=== PATIENT | female | born 1965 | race Caucasian/White ===

== ENCOUNTER 2017-08-26 14:54 | Emergency (ER) | payer OTHER ==
[2017-08-26 15:01] VITALS: TEMP 98.1
[2017-08-26] MEDS ORDERED: CYCLOBENZAPRINE 10 MG TAB PO ONE (15:24)
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
[2017-08-26 17:17] VITALS: BP 113/82; PULSE 93; RESP 20; O2SAT 93
== END 2017-08-26 17:24 | disposition home or self-care (01) ==
DX: S13.9XXA Sprain of joints and ligaments of unspecified parts of neck, initial encounter (principal); S52.501A Unspecified fracture of the lower end of right radius, initial encounter for closed fracture; S00.83XA Contusion of other part of head, initial encounter; S80.02XA Contusion of left knee, initial encounter; I10 Essential (primary) hypertension; M50.30 Other cervical disc degeneration, unspecified cervical region; Z91.040 Latex allergy status; Y08.89XA Assault by other specified means, initial encounter; Y99.8 Other external cause status
CPT/HCPCS: A4565

== ENCOUNTER 2017-08-27 16:34 | Emergency (ER) | payer OTHER ==
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
[2017-08-27] MEDS ORDERED: LIDOCAINE 5% 1 EA PATCH TD ONE (17:09)
[2017-08-27] MEDS ORDERED: DIAZEPAM 10 MG/2 ML SYR IVP ONE (17:09)
[2017-08-27] MEDS ORDERED: KETOROLAC 15 MG/1 ML SDV IVP ONE (17:09)
[2017-08-27] MEDS ORDERED: DEXAMETHASONE 4 MG/ML VIAL IVP ONE (17:09)
[2017-08-27] MEDS ORDERED: HALOPERIDOL LACT 5 MG/ML INJ IVP ONE (18:17)
[2017-08-27 18:27] VITALS: RESP 16
[2017-08-27 19:26] VITALS: BP 141/89; PULSE 105; TEMP 98.4; O2SAT 96
[2017-08-27] MEDS ORDERED: PATCH REMOVAL 1 EA PATCH TD SCH (21:00)
== END 2017-08-27 19:25 | disposition home or self-care (01) ==
DX: M50.30 Other cervical disc degeneration, unspecified cervical region (principal); M62.838 Other muscle spasm; I10 Essential (primary) hypertension; Z91.040 Latex allergy status
CPT/HCPCS: 96374; J1100; J1885